=== PATIENT | female | born 1990 | race Caucasian/White ===

== ENCOUNTER → 2021-09-30 14:43 | Outpatient (BNVA) | payer MEDICAID, SELFPAY | PROVIDERS: Family Provider Nurse Practitioner Family; Visit Provider Nurse Practitioner | DX: Z20.822 Contact with and (suspected) exposure to COVID-19 (principal) | CPT/HCPCS: 87635 ==

== ENCOUNTER 2022-01-30 10:00 | Outpatient (CLI) | payer OTHER, SELFPAY ==
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
== END 2022-01-30 10:01 | disposition home or self-care (01) ==
LOC: RAD 10:10
PROVIDERS: Visit Provider Dermatology
DX: Z02.71 Encounter for disability determination (principal); M47.817 Spondylosis without myelopathy or radiculopathy, lumbosacral region; M43.8X6 Other specified deforming dorsopathies, lumbar region
CPT/HCPCS: 72040; 72100

== ENCOUNTER 2024-03-23 14:06 | Outpatient (CLI) | payer MEDICAID, SELFPAY ==
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
--- NOTE | 2024-03-23 15:33 | XRR_ITS ---
PROCEDURE INFORMATION: Exam: XR Thoracic Spine Exam date and time: 03/23/2024 3:36 PM Age: 33 years old Clinical indication: Pain in thoracic spine; Additional info: Back pain TECHNIQUE: Imaging protocol: Radiologic exam of the thoracic spine. Views: 3 views. COMPARISON: CR XR cervical spine 3V* [id number] 03/23/2024 3:26 PM and lumbar spine 01/30/2022 FINDINGS: Bones/joints: Slight kyphoscoliosis convex to the patient's left. Severe wedge compression fracture T8 vertebral body resulting in mild segmental kyphosis. Chronic compression fracture L1 vertebral body, stable. Disc heights are maintained. Vertebral bodies are intact. Soft tissues: Unremarkable. XR/XR thoracic spine 3V* [id number] IMPRESSION: 1. Severe wedge compression fracture of T8 of indeterminate age. 2. Mild chronic compression fracture L1, stable.
== END 2024-03-23 14:07 | disposition home or self-care (01) ==
LOC: RAD 14:09
PROVIDERS: PCP Nurse Practitioner Family; Visit Provider Nurse Practitioner Family
DX: Z87.81 Personal history of (healed) traumatic fracture (principal); M47.819 Spondylosis without myelopathy or radiculopathy, site unspecified; M41.84 Other forms of scoliosis, thoracic region; M48.54XA Collapsed vertebra, not elsewhere classified, thoracic region, initial encounter for fracture; M48.56XA Collapsed vertebra, not elsewhere classified, lumbar region, initial encounter for fracture; M43.8X2 Other specified deforming dorsopathies, cervical region
CPT/HCPCS: 72040; 72072; 72100

== ENCOUNTER → 2024-04-21 14:07 | Outpatient (BNVA) | payer MEDICAID, SELFPAY | PROVIDERS: PCP Nurse Practitioner Family; Referring Provider Nurse Practitioner Family; Visit Provider Obstetrics & Gynecology | DX: Z01.419 Encounter for gynecological examination (general) (routine) without abnormal findings (principal) | CPT/HCPCS: 87624 ==

== ENCOUNTER 2024-04-22 15:13 | Emergency (ER) | payer OTHER, MEDICAID, SELFPAY ==
[2024-04-22 15:31] VITALS: BP 121/83; PULSE 102; RESP 18; TEMP 36.4; O2SAT 100; BMI 19.7
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
[2024-04-22 17:26] VITALS: PULSE 100; O2SAT 100
[2024-04-22 17:27] VITALS: BP 121/83; PULSE 100; O2SAT 100
== END 2024-04-22 17:28 | disposition home or self-care (01) ==
PROVIDERS: Emergency Provider Nurse Practitioner Family; PCP Nurse Practitioner Family
DX: S16.1XXA Strain of muscle, fascia and tendon at neck level, initial encounter (principal); S39.012A Strain of muscle, fascia and tendon of lower back, initial encounter; S29.012A Strain of muscle and tendon of back wall of thorax, initial encounter; Z87.81 Personal history of (healed) traumatic fracture; V53.6XXA Passenger in pick-up truck or van injured in collision with car, pick-up truck or van in traffic accident, initial encounter
CPT/HCPCS: 72040; 72072; 72100; 73110; 99284

== ENCOUNTER → 2024-05-11 12:16 | Outpatient (BNVA) | payer OTHER, SELFPAY | PROVIDERS: PCP Nurse Practitioner Family; Visit Provider Obstetrics & Gynecology | DX: Z90.710 Acquired absence of both cervix and uterus (principal); N83.292 Other ovarian cyst, left side; N94.10 Unspecified dyspareunia | CPT/HCPCS: 76830 ==

== ENCOUNTER → 2024-06-30 16:48 | Outpatient (BNVA) | payer OTHER, SELFPAY | PROVIDERS: PCP Nurse Practitioner Family; Visit Provider Registered Nurse Neonatal Intensive Care | DX: J02.9 Acute pharyngitis, unspecified (principal) | CPT/HCPCS: 87071; 87880 ==